=== PATIENT | male | born 1955 | race Caucasian/White ===

== ENCOUNTER 2022-09-04 19:39 | Emergency (ER) | payer OTHER ==
[~2022-09-04] VITALS: Ht 180.3 cm; Wt 77.1 kg
[~2022-09-04 19:39] MED LIST: ABILIFY MYCITE2 M2; BENZ100A PO; Bentyl10 MG PO; CREON DR 6,0001 EACH PO; DOCU100 PO; HYDHCL25 PO; HYDPAM25 PO; KLONOPIN0.5 M9 PO; Klonopin1 MG PO; LACT10SY PO; MAGNESIUM OXID500 MG PO; MELA3 PO; Miralax17 GM PO; OMEP20ER PO; PEPCID40 MG PO; PROZAC2010 PO; PROZAC40 MG PO; PSYSENPA PO; Prozac20 MG PO; TAMSULOSIN HCL0.4 M1 PO; THIAMINE H100 MG/1 M IJ; [UNRECOGNIZED DRUG - OTHER] PO
[2022-09-04 19:47] VITALS: BP 116/81
[2022-09-04 20:59] LABS: BASOPHILS ABSOLUTE AUTO 0.03 K/mm3 (0.00-0.23); BASOPHILS PERCENT AUTO 1 % (0-2); EOSINOPHILS ABSOLUTE AUTO 0.29 K/mm3 (0.00-0.68); EOSINOPHILS PERCENT AUTO 6 % (0-6); Hemoglobin 11.5 g/dL (13.5-17.5); IMMATURE GRAN ABSOLUTE AUTO 0.01 K/mm3 (0.00-0.10); IMMATURE GRAN PERCENT AUTO 0 % (0-1); LYMPHOCYTES ABSOLUTE AUTO 1.48 K/mm3 (0.84-5.20); LYMPHOCYTES PERCENT AUTO 28 % (21-46); MONOCYTES ABSOLUTE AUTO 0.53 K/mm3 (0.16-1.47); MONOCYTES PERCENT AUTO 10 % (4-13); Mean Corpuscular HGB 32.1 pg (26.0-34.0); Mean Corpuscular HGB Conc 32.9 g/dL (31.5-36.5); Mean Corpuscular Volume 98 fL (80-100); NEUTROPHILS ABSOLUTE AUTO 2.94 K/mm3 (1.96-9.15); NEUTROPHILS PERCENT AUTO 56 % (41-73); Platelet Count 208 K/mm3 (150-400); RDW Coefficient Variation 14.5 % (11.7-14.2); RDW Standard Deviation 52.6 fL (35.1-46.3); Red Blood Cell Count 3.58 M/mm3 (4.30-5.90); White Blood Cell Count 5.28 K/mm3 (4.00-11.30)
[2022-09-04 21:17] LABS: Albumin, Blood 3.2 g/dL (3.4-5.0); Bilirubin, Total 0.2 mg/dL (0.1-1.0); Bun/Creatinine Ratio 26.8 (12.0-20.0); Calcium, Blood 8.8 mg/dL (8.5-10.1); Creatinine, Blood 0.6 mg/dL (0.60-1.20); Globulin, Blood 3.2 g/dL (2.2-4.0); Potassium, Blood 3.9 mmol/L (3.5-5.5); Total Protein, Blood 6.4 g/dL (6.4-8.2)
== END 2022-09-04 22:48 | disposition home or self-care (01) ==
LOC: ER 19:39
PROVIDERS: Student in an Organized Health Care Education/Training Program
DX: R10.9 Unspecified abdominal pain (principal); Z88.8 Allergy status to other drugs, medicaments and biological substances; Z79.899 Other long term (current) drug therapy
CPT/HCPCS: 74177; 80053; 83605; 85025; 93005; 93010; A9270; J7030; Q9967